=== PATIENT | male | born 1965 | race African-American/Black ===

== ENCOUNTER 2019-07-01 14:34 | Emergency (ER) | payer OTHER, MEDICAID ==
[~2019-07-01] VITALS: Ht 167.6 cm; Wt 72.6 kg
[2019-07-01 14:48] VITALS: BP_SYST 117
--- NOTE | 2019-07-01 14:50 | NUR ---
Patient to ER bed 8 to gown for evaluation. Side rails up. Report given to Maco FLOWERS .
--- NOTE | 2019-07-01 14:51 | NUR ---
Patient is awake, alert, and oriented x4. Patient reports he was at a restaurant today and experienced a seizure. Patient denies any distress at this time.
--- NOTE | 2019-07-01 15:10 | NUR ---
ER Dr. Aceves at bedside examining patient.
[2019-07-01] MEDS ORDERED: LORazepam 2 MG/ML VIAL IVP ONE (15:15)
[2019-07-01 15:32] LABS: BASOPHILS % (AUTO) 0.3 % (0.0-2.0); EOSINOPHILS # (AUTO) 0.1 K/uL (0.0-0.4); EOSINOPHILS % (AUTO) 1.3 % (0.0-4.0); HEMATOCRIT 43.6 % (36-54); HEMOGLOBIN 14.5 g/dL (14.0-18.0); LYMPHOCYTES % (AUTO) 45.1 % (20.5-51.5); MEAN CORPUSCULAR HEMOGLOBIN 31 pg (27-31); MEAN CORPUSCULAR HGB CONC 33 % (32-36); MEAN CORPUSCULAR VOLUME 92 fL (79.0-98.0); MONOCYTES # (AUTO) 0.3 K/uL (0.0-1.0); MONOCYTES % (AUTO) 7.8 % (1.7-9.3); NEUTROPHILS % (AUTO) 45.5 % (40.0-70.0); PLATELET COUNT (AUTO) 122 K/uL (130-430); RED BLOOD CELL COUNT(AUTO) 4.77 MIL/uL (4.2-6.2); WHITE BLOOD COUNT (AUTO) 4.4 K/uL (4.8-10.8)
[2019-07-01 15:45] LABS: CALCIUM 8.7 mg/dL (8.4-11.0); CREATININE 1.09 mg/dL (0.55-1.30)
[2019-07-01 15:49] LABS: ALBUMIN 3.5 g/dL (3.4-4.8); TOTAL BILIRUBIN 0.2 mg/dL (0.0-1.0)
--- NOTE | 2019-07-01 16:20 | NUR ---
Pt moved to bed 05
--- NOTE | 2019-07-01 17:02 | NUR ---
Patient given written and verbal discharge instructions and verbalizes understanding. ER MD discussed with patient the results and treatment provided. Patient in stable condition. ID arm band removed. Patient educated on pain management and to follow up with PMD. Pain Scale 0/10. Opportunity for questions provided and answered. Medication side effect fact sheet provided.
== END 2019-07-01 17:02 | disposition home or self-care (01) ==
LOC: SED 14:34 → EDBD 14:34 → SED 17:02
DX: R56.9 Unspecified convulsions (principal)
CPT/HCPCS: 36415; 80053; 80164; 85025; 96374; 99283; J2060